=== PATIENT | female | born 1965 | race Caucasian/White ===

== ENCOUNTER 2020-09-16 08:23 | Outpatient (CLI) | payer OTHER ==
--- NOTE | 2020-09-16 13:04 | MRI ---
Exam: Lumbar spine MRI with and without contrast HISTORY: Spina bifida aperta. Abnormal gait and mobility. Chronic back pain and bladder problems. [place] el movement issues for a year. COMPARISON: None. FINDINGS: Appropriate T1 marrow signal intensity of the lumbar vertebra. Lumbar spine vertebral body heights ar e maintained. No fracture. No significant STIR hyperintensity to suggest ligamentous injury or vertebral body edema. Postcontrast images do not demonstrate any abnormal enhancement within the thecal sac including the c auda equina and conus medullary. Appropriate signal intensity of the visualized paraspinal muscles and solid organs. Conus medullaris terminus of the upper aspect of L1. T11-T12: Broad-based disc bulge with mild central canal stenosis. T12-L1: Adequate disc hydration. Mild ligamentum flavum thickening and facet hypertrophy. No signific ant central canal stenosis. Patent bilateral neural foramina. L1-L2: Adequate disc hydration. Mild ligamentum flavum thickening and facet hypertrophy. No significa nt central canal stenosis. Patent bilateral neural foramina. L2-L3: Adequate disc hydration. No significant loss of disc space height. Broad-based disc bulge, lig amentum flavum thickening and facet hypertrophy result in mild central canal stenosis. Patent bilateral neural foramina. L3-L4: Minimal disc desiccation without significant loss of disc space height. Broad-based disc bulge flattens the ventral thecal sac. There is ligamentum flavum thickening and facet hypertrophy. Trace fluid in both facet joints. Mild central canal stenosis. Minimal bilateral foraminal narrowing due to disc material. L4-L5: Adequate disc hydration. No posterior disc abnormality. There is ligamentum flavum thickening and facet hypertrophy. Small amount of fluid in both facet joints. No significant central canal stenosis. Mild bilateral neural foraminal narrowing. L5-S1: Adequate disc hydration. No posterior disc abnormality. No significant central canal stenosis or significant neural foraminal narrowing. There is mild bilateral facet hypertrophy. There are T2 hyperintensities at the S1 and S2 level, compatible with bilateral perineural sleeve cys ts. There does not appear to be any evidence of incomplete fusion of the posterior elements in the visual ized lumbar spine. IMPRESSION: 1. No abnormal enhancement with regards to the vertebral body, conus medullaris and cauda equina. 2. 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 3. No significant central canal stenosis or significant neural foraminal narrowing throughout the lum bar spine. 4. No evidence of incomplete fusion of the posterior elements in the visualized lumbar spine to sugge st spina bifida aperta. If there is still concern, better interrogation with lumbar spine radiograph series is recommended. Transcribed Date/Time: 09/16/2020 1:54 PM
== END 2020-09-16 08:24 | disposition home or self-care (01) ==
LOC: SCSMRI 08:23
PROVIDERS: ATTEND Family Medicine
DX: R26.9 Unspecified abnormalities of gait and mobility (principal); Q05.7 Lumbar spina bifida without hydrocephalus; G96.191 Perineural cyst
CPT/HCPCS: 72158